=== PATIENT | male | born 1970 | race Caucasian/White ===

== ENCOUNTER → 2020-04-01 15:22 | Outpatient (CLI) | payer MEDICAID, SELFPAY ==
[2020-04-01 16:03] LABS: Basophils % 0.4 % (0.1-2.0); Eosinophils # 0.1 K/mm3 (0.0-0.4); Eosinophils % 0.7 % (0.1-12.0); Hematocrit 52.8 % (42.0-52.0); Hemoglobin 17.9 g/dL (14.1-18.0); Lymphocytes # 2.5 K/mm3 (0.7-4.5); Lymphocytes % 38.3 % (10-50); Mean Corpuscular Hemoglobin 32.9 pg (27.0-31.2); Mean Corpuscular Volume 96.9 fl (80-94); Mean Platelet Volume 10.4 fl (7.4-10.4); Monocytes # 0.4 K/mm3 (0.1-1.0); Monocytes % 5.9 % (1.7-9.3); Neutrophils # 3.5 K/mm3 (1.8-7.8); Neutrophils % 54.7 % (37.0-80.0); Platelet Count 111 K/mm3 (142-424); Red Blood Count 5.45 M/mm3 (4.60-6.20); Red Cell Distribution Width 13.3 % (11.5-17.5); White Blood Count 6.4 K/mm3 (4.8-10.8)
[2020-04-01 16:14] LABS: Alanine Aminotransferase 59 U/L (12-78); Albumin Level 4.6 g/dl (3.5-5.0); Albumin/Globulin Ratio 1.4 (1.1-1.8); Alkaline Phosphatase 111 U/L (38-126); Anion Gap 14.9 mEq/L (5-15); Aspartate Amino Transferase 46 U/L (17-59); Blood Urea Nitrogen 8 mg/dl (9-20); Calcium 10.3 mg/dl (8.4-10.2); Carbon Dioxide 26 mmol/L (22.0-30.0); Chloride 108 mmol/L (98-107); Chol/HDL Ratio 2.6 (1-3.5); Cholesterol 89 mg/dl (140-200); Estimated Glomerular Filt Rate 120 ml/min (>60); GFR (African American) 146 ML/MIN (>60); Globulin 3.3 g/dL (1.3-3.2); Glucose 104 mg/dl (74-100); HDL Cholesterol 34 mg/dl (40-60); Potassium 4.9 mmoL/L (3.5-5.1); Sodium 144 mmol/L (136-145); Total Protein,Serum 7.9 g/dl (6.3-8.2); Triglycerides 49 mg/dl (30-150); VLDL Cholesterol 10 mg/dL (0-40)
[2020-04-01 16:25] LABS: Direct LDL Cholesterol 46.51 mg/dL (100-129)
[2020-04-01 16:30] LABS: Free T4 (Free Thyroxine) 2.33 ng/dl (0.78-2.19)
[2020-04-01 16:44] LABS: Thyroid Stimulating Hormone < 0.02 uIU/mL (0.465-4.68)
== END ==
PROVIDERS: Visit Provider Emergency Medicine
DX: G62.9 Polyneuropathy, unspecified (principal); I10 Essential (primary) hypertension; R51.9 Headache, unspecified; E55.9 Vitamin D deficiency, unspecified
CPT/HCPCS: 80053; 80061; 82306; 84439; 84443; 85025

== ENCOUNTER → 2020-04-03 16:24 | Outpatient (CLI) | payer MEDICAID, SELFPAY ==
[2020-04-03 17:26] LABS: Thyroid Stimulating Hormone < 0.02 uIU/mL (0.465-4.68)
== END ==
PROVIDERS: Visit Provider Emergency Medicine
DX: R94.6 Abnormal results of thyroid function studies (principal); K59.00 Constipation, unspecified
CPT/HCPCS: 84439; 84443

== ENCOUNTER 2020-07-05 09:54 | Emergency (ER) | payer MEDICAID, SELFPAY ==
[2020-07-05 09:56] VITALS: BP 159/116; PULSE 101; RESP 20; TEMP 36.9; O2SAT 99; BMI 25.0
--- NOTE | 2020-07-05 10:01 | HMH.EDGENADL ---
ED Disposition Clinical Impression: Headache Qualifiers: Headache type: unspecified Headache chronicity pattern: acute headache Intractability: not intractable Qualified Code(s): R51.9 - Headache, unspecified Back pain Qualifiers: Back pain location: low back pain Chronicity: acute Back pain laterality: left Sciatica presence: without sciatica Qualified Code(s): M54.5 - Low back pain Disposition: Home, Self-Care Condition on Discharge: Good Instructions: DI for Headache, DI for Low Back Pain Additional Instructions: Ibuprofen for pain. Low up with your primary care provider tomorrow. Additional instructions for HEADACHE: See your physician as soon as possible for further evaluation. Return immediately if worsening headache, vomiting, problems with vision or speech, fever, numbness or weakness of the extremities, neck pain or stiffness. Additional instructions for BACK PAIN: See your physician as soon as possible for further evaluation. Return immediately if back pain becomes intolerable, or if fever, numbness or weakness of your legs, loss of control of your bowels or bladder. Referrals: Remy Galvan MD [Primary Care Provider] - - Critical Care Critical Care Time: No Attestation: On 07/05/20, the high probability of a clinically significant, sudden or life threatening deterioration of the following system(s) required my full and direct attention, intervention and personal management. The time I documented below is in addition to time spent performing reported procedures but includes the following listed in this critical care notation. Medical Decision Making - Medical Records Medical records reviewed: Yes: I reviewed the patient's medical records. MR Comment: Previous office visits reviewed, see HPI. - Deandre Inquiry Pt receiving controlled substance: Yes Deandre was queried for this patient: Yes Risks and benefits of using a controlled substance: were not discussed with pt by me Comment: last rx for suboxone 05/19/20 - 7 day supply Vital Signs: 07/05/20 09:56 07/05/20 10:17 07/05/20 10:30 Temperature 98.5 F Temperature Source Oral Pulse Rate Pulse Rate [Left Radial] 101 H 92 H 82 Respiratory Rate 20 18 20 Blood Pressure Blood Pressure [Left Arm] 159/116 H 155/102 H 163/103 H Blood Pressure Mean [Left Arm] 130 119 123 Blood Pressure Source [Left Arm] Automatic Cuff Automatic Cuff Blood Pressure Position [Left Arm] Sitting 02 Sat by Pulse Oximetry 99 100 100 Oxygen Delivery Method Room Air Room Air 07/05/20 11:00 07/05/20 12:11 07/05/20 12:45 Temperature 98 F Temperature Source Pulse Rate 74 Pulse Rate [Left Radial] 85 100 H Respiratory Rate 16 16 18 Blood Pressure 117/82 Blood Pressure [Left Arm] 158/110 H 160/123 H Blood Pressure Mean [Left Arm] 126 135 Blood Pressure Source [Left Arm] Blood Pressure Position [Left Arm] 02 Sat by Pulse Oximetry 99 98 Oxygen Delivery Method - Lab Data Lab Results 07/05/20 10:02: Urine Opiates Screen Negative, Urine Methadone Screen Negative, Ur Barbituates Screen Negative, Ur Phencyclidine Scrn Negative, Ur Amphetamines Screen Negative, U Benzodiazepines Scrn Negative, Urine Cocaine Screen Negative, U Marijuana (THC) Screen Negative 07/05/20 10:10: Urine Color Yellow, Urine Appearance Clear, Urine pH 6.5, Ur Specific [place] 1.020, Urine Protein Negative, Urine Glucose (UA) Negative, Urine Ketones 1+, Urine Blood Negative, Urine Nitrate Negative, Urine Bilirubin Negative, Urine Urobilinogen 0.2, Ur Leukocyte Esterase Negative, Urine RBC None, Urine WBC None, Ur Squamous Epith Cells Occasional, Urine Bacteria None 07/05/20 10:10: WBC 10.3, RBC 5.57, Hgb 17.9, Hct 52.0, MCV 93.5, MCH 32.2 H, MCHC 34.5, RDW 14.1, Plt Count 129 L, MPV 9.1, Neut % (Auto) 71.0, Lymph % (Auto) 23.1, Towns % (Auto) 4.8, Eos % (Auto) 0.7, Baso % (Auto) 0.4, Neut # (Auto) 7.3, Lymph # (Auto) 2.4, Towns # (Auto) 0.5, Eos # (Auto) 0.1, Baso # (Au
[2020-07-05 10:17] VITALS: BP 155/102; PULSE 92; RESP 18; O2SAT 100
--- NOTE | 2020-07-05 10:17 | CT_ITS ---
Dictated by: Vasquez Phillips MD 07/05/2020 15:46 Vasquez Phillips MD in [facility] 07/05/2020 15:47
[2020-07-05 10:18] LABS: Microscopic, Urine URINE MICROSCOPIC (MICROSCOPIC)
--- NOTE | 2020-07-05 10:18 | CT_ITS ---
Dictated by: Vasquez Phillips MD 07/06/2020 07:29 Vasquez Phillips MD in [facility] 07/06/2020 07:29
[2020-07-05 10:21] LABS: Appearance,Urine CLEAR (Clear); Basophils % 0.4 % (0.1-2.0); Blood, Urine Negative (Negative); Color,Urine YELLOW (Yellow); Eosinophils # 0.1 K/mm3 (0.0-0.4); Eosinophils % 0.7 % (0.1-12.0); Glucose,Urine (UA) Negative (Negative); Hemoglobin 17.9 g/dL (14.1-18.0); Ketones,Urine 1+ (Negative); Leukocyte Esterase,Urine Negative (Negative); Lymphocytes # 2.4 K/mm3 (0.7-4.5); Lymphocytes % 23.1 % (10-50); Mean Corpuscular HGB Conc 34.5 g/dL (31.8-35.4); Mean Corpuscular Hemoglobin 32.2 pg (27.0-31.2); Mean Corpuscular Volume 93.5 fl (80-94); Mean Platelet Volume 9.1 fl (7.4-10.4); Monocytes # 0.5 K/mm3 (0.1-1.0); Monocytes % 4.8 % (1.7-9.3); Neutrophils # 7.3 K/mm3 (1.8-7.8); Nitrate,Urine Negative (Negative); PH,Urine 6.5 (5.0-8.5); Platelet Count 129 K/mm3 (142-424); Protein,Urine Negative (Negative); Red Blood Count 5.57 M/mm3 (4.60-6.20); Red Cell Distribution Width 14.1 % (11.5-17.5); Urobilinogen,Urine 0.2 EU/dl (0.2); White Blood Count 10.3 K/mm3 (4.8-10.8)
[2020-07-05 10:24] LABS: Bilirubin,Urine Negative (Negative)
[2020-07-05 10:30] VITALS: BP 163/103; PULSE 82; RESP 20; O2SAT 100
[2020-07-05 10:30] LABS: Chloride 104 mmol/L (98-107); Sodium 142 mmol/L (136-145)
--- NOTE | 2020-07-05 10:31 | PC.NURSE ---
notified [facility] of pt coming to them for CT scan r/t Ct scanner down here, spoke with Jamir in radiology [place] [facility] aware of pt transfer to [place] for CT scans
[2020-07-05 10:32] LABS: Blood Urea Nitrogen 13 mg/dl (9-20); Creatinine Clearance Estimated 120 mL/min (50-200); Estimated Glomerular Filt Rate 103 ml/min (>60); GFR (African American) 125 ML/MIN (>60)
[2020-07-05 10:33] LABS: Alanine Aminotransferase 66 U/L (12-78); Albumin/Globulin Ratio 1.3 (1.1-1.8); Alkaline Phosphatase 106 U/L (38-126); Aspartate Amino Transferase 56 U/L (17-59); Bilirubin,Total 1.6 mg/dl (0.2-1.3); Calcium 10.1 mg/dl (8.4-10.2); Carbon Dioxide 27 mmol/L (22.0-30.0); Glucose 90 mg/dl (74-100)
[2020-07-05 10:35] LABS: Ethyl Alcohol < 10 mg/dl (0-10)
[2020-07-05 10:37] LABS: Barbiturates Screen,Urine Negative ng/ml (<200)
[2020-07-05 10:38] LABS: Amphetamine/Metha Screen,Urine Negative ng/ml (<1000); Benzodiazepines Screen,Urine Negative ng/ml (<200)
[2020-07-05 10:38] LABS: Squamous Epithelial Cell,Urine Occasional #/hpf (0-5)
[2020-07-05 10:39] LABS: Cannabinoid Screen,Urine Negative ng/ml (<50)
[2020-07-05 10:40] LABS: Cocaine Screen,Urine Negative ng/ml (<300); Methadone Screen,Urine Negative ng/ml (<300)
--- NOTE | 2020-07-05 10:40 | PC.NURSE ---
report given to [facility] for transport to [place] for Ct scan
[2020-07-05 10:41] LABS: Opiate Screen,Urine Negative ng/ml (<300)
--- NOTE | 2020-07-05 10:41 | PC.NURSE ---
pt to [facility] via [facility] at this time for Ct scans
[2020-07-05 10:42] LABS: Phencyclidine Screen,Urine Negative ng/ml (<25)
[2020-07-05 11:00] VITALS: BP 117/82; PULSE 74; RESP 16; TEMP 36.6
[2020-07-05 12:11] VITALS: BP 158/110; PULSE 85; RESP 16; O2SAT 99
[2020-07-05 12:45] VITALS: BP 160/123; PULSE 100; RESP 18; O2SAT 98
== END 2020-07-05 13:24 | disposition home or self-care (01) ==
PROVIDERS: Emergency Provider Emergency Medicine; PCP Emergency Medicine
DX: R51.9 Headache, unspecified (principal); M54.9 Dorsalgia, unspecified; Z87.442 Personal history of urinary calculi; F17.210 Nicotine dependence, cigarettes, uncomplicated; F19.11 Other psychoactive substance abuse, in remission
CPT/HCPCS: 70450; 74176; 80053; 80305; 81001; 85025; 96375; 99283; J0595; J2405